=== PATIENT | male | born 2005 | race Caucasian/White ===

== ENCOUNTER 2024-12-20 19:04 | Emergency (ER) | payer OTHER ==
[2024-12-20 19:53] LABS: Influenza A Ag Negative; Influenza B Ag Negative; SARS-CoV-2 Antigen Rapid Res Negative (Negative)
--- NOTE | 2024-12-20 20:39 | RAD REPORT ---
EXAMINATION: TWO VIEW CHEST XR CLINICAL INDICATION: Male, 19 years old. [facility] MAIN COUGH Bed Name: [facility] TECHNIQUE: 2 view radiographs of the chest were performed. COMPARISON: 12/31/2013 FINDINGS: The lungs are well inflated and clear. No pneumothorax or sizable effusion. The heart is normal in si ze. Mediastinal contours are unremarkable. IMPRESSION: No acute or significant abnormalities.
[2024-12-20] MEDS ORDERED: IBUPROFEN 200 MG TAB PO ONE (21:14)
[2024-12-20] MEDS ORDERED: CEFTRIAXONE 1000 MG/VIAL ONE (21:14)
[2024-12-20] MEDS ORDERED: AZITHROMYCIN 250 MG TAB ONE (21:14)
[2024-12-20] MEDS ORDERED: LIDOCAINE 1% MPF 2 ML AMPULE ONE (21:14)
--- NOTE | 2024-12-20 21:18 | EDPHYS ---
Physician Documentation [facility] Name: Padilla Barrett Age: 19 yrs Sex: Male : 2005 Arrival Date: 12/20/2024 Time: 19:04 Bed 10 Private MD: ED Physician Vasiliy Alvarez HPI: 12/20 21:09 This 19 yrs old Male presents to ER via Ambulatory with complaints of Cough, baltazar Congestion. 21:09 The patient or guardian reports airway noise, cough, flu symptoms, low-grade fever, baltazar myalgias. Severity of symptoms: At their worst the symptoms were mild, in the emergency department the symptoms are unchanged. Modifying factors: The symptoms are alleviated by. Associated signs and symptoms: The patient has no apparent associated signs or symptoms. The patient has not experienced similar symptoms in the past. Historical: - Allergies: 19:23 No Known Allergies; jb4 - PMHx: 19:23 None; jb4 - PSHx: 19:23 None; jb4 - Immunization history:: Adult Immunizations up to date. - Infectious Disease History:: Denies. - Social history:: Smoking status: Patient denies any tobacco usage or history of. Patient uses alcohol, occasionally. ROS: 21:15 Constitutional: Negative for fever, chills, and weight loss, Eyes: Negative for injury, baltazar pain, redness, and discharge, ENT: Negative for injury, pain, and discharge, Neck: Negative for injury, pain, and swelling, Cardiovascular: Negative for chest pain, palpitations, and edema, Abdomen/GI: Negative for abdominal pain, nausea, vomiting, diarrhea, and constipation, Back: Negative for injury and pain, : Negative for injury, bleeding, discharge, and swelling, MS/Extremity: Negative for injury and deformity, Skin: Negative for injury, rash, and discoloration, Neuro: Negative for headache, weakness, numbness, tingling, and seizure, Psych: Negative for depression, anxiety, suicide ideation, homicidal ideation, and hallucinations, Allergy/Immunology: Negative for hives, rash, and allergies, Endocrine: Negative for neck swelling, polydipsia, polyuria, polyphagia, and marked weight changes, Hematologic/Lymphatic: Negative for swollen nodes, abnormal bleeding, and unusual bruising, 21:15 Respiratory: Positive for cough, Exam: 21:15 Constitutional: This is a well developed, well nourished patient who is awake, alert, baltazar and in no acute distress. Head/Face: Normocephalic, atraumatic. Eyes: Pupils equal round and reactive to light, extra-ocular motions intact. Lids and lashes normal. Conjunctiva and sclera are non-icteric and not injected. Cornea within normal limits. Periorbital areas with no swelling, redness, or edema. ENT: Nares patent. No nasal discharge, no septal abnormalities noted. Tympanic membranes are normal and external auditory canals are clear. Oropharynx with no redness, swelling, or masses, exudates, or evidence of obstruction, uvula midline. Mucous membranes moist. Neck: Trachea midline, no thyromegaly or masses palpated, and no cervical lymphadenopathy. Supple, full range of motion without nuchal rigidity, or vertebral point tenderness. No Meningismus. Chest/axilla: Normal chest wall appearance and motion. Nontender with no deformity. No lesions are appreciated. Cardiovascular: Regular rate and rhythm with a normal S1 and S2. No gallops, murmurs, or rubs. Normal PMI, no JVD. No pulse deficits. Respiratory: Lungs have equal breath sounds bilaterally, clear to auscultation and percussion. No rales, rhonchi or wheezes noted. No increased work of breathing, no retractions or nasal flaring. Abdomen/GI: Soft, non-tender, with normal bowel sounds. No distension or tympany. No guarding or rebound. No evidence of tenderness throughout. Back: No spinal tenderness. No costovertebral tenderness. Full range of motion. Male : Normal genitalia with no discharge or lesions. Skin: Warm, dry with normal turgor. Normal color with no rashes, no lesions, and no evidence of cellulitis. MS/ Extremity: Pulses equal, no cyanosis. Neurovascular intact. Full, normal range of motion., bilateral aka Neuro: Awake and alert, GCS 15, oriented to person, place, time, and situation. Cranial nerves II-XII grossly intact. Motor strength 5/5 in all extremities. Sensory grossly intact. Cerebellar exam normal. Normal gait. Psych: Awake, alert, with orientation to person, place and time. Behavior, mood, and affect are within normal limits. 21:15 Musculoskeletal/extremity: DVT Exam: No signs of deep vein thrombosis. no pain, no swelling, no tenderness, negative Homans' sign noted on exam, no appreciated bluish discoloration, no erythema, no increased warmth, Vital Signs: 19:20 BP 159 / 111; Pulse 105; Resp 14; Temp 99(TE); Pulse Ox 100% on R/A; Weight 92.99 kg jb4 (R); Height 5 ft. 9 in. (R); Pain 5/10; 21:30 BP 149 / 104; Pulse 96; Resp 16; Pulse Ox 100% ; cp4 19:20 Body Mass Index 30.27 (92.99 kg, 175.26 cm) jb4 19:20 Pain Scale: Adult jb4 MDM: 19:21 Medical Screening Exam initiated baltazar 21:16 Differential diagnosis: viral Infection, bacterial infection, URI, bronchitis, baltazar pneumonia UTI. Differential Diagnosis: Obstructed Airway Bronchitis Influenza Upper Respiratory Infection Sinusitis Pharyngitis Allergic Rhinitis Asthma Exacerbation Viral Syndrome Pneumonia. Data reviewed: vital signs, nurses notes, lab test result(s), radiologic studies, plain films. Consideration of Admission/Observation Patient was admitted/placed on observation. Escalation of care including admission/observation considered. I considered the following discharge prescriptions or medication management in the emergency department Medications were administered in the Emergency Department. See MAR. Historians other than the Patient: pt well informed. Care significantly affected by the following chronic conditions: none. 12/20 19:23 Order name: COVID-19 Ag + Flu A+B Ag baltazar 12/20 19:23 Order name: Chest Pa And Lat (2 Views) XRAY baltazar Administered Medications: 21:19 Drug: Rocephin (cefTRIAXone) IM 1 grams IM once Route: IM; Site: right ventrogluteal; cp4 21:20 Follow up: Response: No adverse reaction cp4 21:19 Drug: AZITHromycin PO 500 mg PO once Route: PO; cp4 21:20 Follow up: Response: No adverse reaction cp4 21:19 Drug: Ibuprofen PO 600 mg PO once Route: PO; cp4 21:20 Follow up: Response: No adverse reaction cp4 Disposition Summary: 12/20/24 21:18 Discharge Ordered Notes: Location: Home baltazar Problem: new baltazar Symptoms: have improved baltazar Condition: Stable baltazar Diagnosis - Acute upper respiratory infection, unspecified baltazar - Cough baltazar - Fever, unspecified baltazar Followup: baltazar - With: Private Physician - When: 2 - 3 days - Reason: Recheck today's complaints, Continuance of care, Re-evaluation by your physician Discharge Instructions: - Discharge Summary Sheet baltazar - Fever, Adult baltazar - Cool Mist Vaporizer baltazar - Cough, Adult, [id number] baltazar - Cough, Adult baltazar - Fever, Adult, [id number] [facility] Forms: - Medication Reconciliation Form baltazar - Antibiotic Education baltazar - Prescription Opioid Use baltazar - Patient Portal Instructions [facility] - Leadership Thank You Letter [facility] Prescriptions: - Tessalon Perles 100 mg Oral capsule - take 2 capsule ORAL route every 8 hours As needed; 30 capsule; Refills: 0, [facility] Product Selection Permitted - Zithromax 500 mg Oral Tablet - take 1 tablet ORAL route once daily for 5 days; 5 tablet; Refills: 0, Product [facility] Selection Permitted Signatures: Dispatcher [employer] Vasiliy Kim MD MD cha Bryson, James RN RN jb4 Suha Hale 4
--- NOTE | 2024-12-20 21:18 | ER ---
Nurse's Notes [facility] Name: Padilla Barrett Age: 19 yrs Sex: Male : 2005 Arrival Date: 12/20/2024 Time: 19:04 Bed 10 Private MD: Diagnosis: Acute upper respiratory infection, unspecified;Cough;Fever, unspecified Presentation: 12/20 19:20 Chief complaint: Patient states: I have been coughing up a lot of mucus and having jb4 blood tinged sputum. I am having headaches and my ankles hurt. The cough started 6 days ago. Coronavirus screen: At this time, the client does not indicate any symptoms associated with coronavirus-19. Ebola Screen: No symptoms or risks identified at this time. Initial Sepsis Screen: Does the patient meet any 2 criteria? No. Patient's initial sepsis screen is negative. Does the patient have a suspected source of infection? No. Patient's initial sepsis screen is negative. Risk Assessment: Do you want to hurt yourself or someone else? Patient reports no desire to harm self or others. Onset of symptoms was December 20, 2024. Transition of care: patient was not received from another setting of care. 19:20 Method Of Arrival: Ambulatory jb4 19:20 Acuity: LEEANN 4 jb4 Triage Assessment: 19:23 General: Appears in no apparent distress. uncomfortable, Behavior is calm, cooperative. jb4 Pain: Complains of pain in OLGA LIDIA ankles, Front of head. Pain does not radiate. Pain currently is 5 out of 10 on a pain scale. Cardiovascular: Patient's skin is warm and dry. Respiratory: Airway is patent Respiratory effort is even, unlabored, Respiratory pattern is regular, symmetrical. Derm: Skin is intact, Skin is pink, warm \T\ dry. Musculoskeletal: Circulation, motion, and sensation intact. Range of motion: intact in all extremities. Historical: - Allergies: 19:23 No Known Allergies; jb4 - PMHx: 19:23 None; jb4 - PSHx: 19:23 None; jb4 - Immunization history:: Adult Immunizations up to date. - Infectious Disease History:: Denies. - Social history:: Smoking status: Patient denies any tobacco usage or history of. Patient uses alcohol, occasionally. Screenin:31 [facility] ED Fall Risk Assessment (Adult) History of falling in the last 3 months, cp4 including since admission No falls in past 3 months (0 pts) Confusion or Disorientation No (0 pts) Intoxicated or Sedated No (0 pts) Impaired Gait No (0 pts) Mobility Assist Device Used No (0 pt) Altered Elimination No (0 pt) Score/Fall Risk Level 0 - 2 = Low Risk Oriented to surroundings, Maintained a safe environment, Assessed \T\ reinforced patient's understanding of fall precautions, Hourly rounding (assess needs \T\ fall precautionary measures) done. Abuse screen: Denies threats or abuse. Denies injuries from another. Nutritional screening: No deficits noted. Tuberculosis screening: No symptoms or risk factors identified. Assessment: 19:31 General: Appears in no apparent distress. uncomfortable, Behavior is calm, cooperative, cp4 appropriate for age. Pain: Denies pain. Neuro: Level of Consciousness is awake, alert, obeys commands, Oriented to person, place, time, situation. Cardiovascular: Patient's skin is warm and dry. Respiratory: Airway is patent Respiratory effort is even, unlabored, Breath sounds are clear bilaterally. GI: No signs and/or symptoms were reported involving the gastrointestinal system. : No signs and/or symptoms were reported regarding the genitourinary system. EENT: No signs and/or symptoms were reported regarding the EENT system. Derm: No signs and/or symptoms reported regarding the dermatologic system. Musculoskeletal: No signs and/or symptoms reported regarding the musculoskeletal system. Vital Signs: 19:20 BP 159 / 111; Pulse 105; Resp 14; Temp 99(TE); Pulse Ox 100% on R/A; Weight 92.99 kg jb4 (R); Height 5 ft. 9 in. (R); Pain 5/10; 21:30 BP 149 / 104; Pulse 96; Resp 16; Pulse Ox 100% ; cp4 19:20 Body Mass Index 30.27 (92.99 kg, 175.26 cm) jb4 19:20 Pain Scale: Adult jb4 ED Course: 19:07 Patient arrived in ED. rg4 19:21 Vasiliy Alavrez MD is Attending Physician. baltazar 19:23 Triage completed. jb4 19:23 Arm band placed on right wrist. jb4 19:31 Suha Hale is Primary Nurse. cp4 19:31 Bed in low position. Call light in reach. Side rails up X 1. cp4 19:31 No provider procedures requiring assistance completed. Patient did not have IV access cp4 during this emergency room visit. 20:07 Chest Pa And Lat (2 Views) XRAY In Process Unspecified. EDMS 21:30 Provided Education on: fever and cough. cp4 Administered Medications: 21:19 Drug: Rocephin (cefTRIAXone) IM 1 grams IM once Route: IM; Site: right ventrogluteal; cp4 21:20 Follow up: Response: No adverse reaction cp4 21:19 Drug: AZITHromycin PO 500 mg PO once Route: PO; cp4 21:20 Follow up: Response: No adverse reaction cp4 21:19 Drug: Ibuprofen PO 600 mg PO once Route: PO; cp4 21:20 Follow up: Response: No adverse reaction cp4 Medication: 19:31 VIS not applicable for this client. cp4 Outcome: 21:18 Discharge ordered by . baltazar 21:30 Discharged to home ambulatory, cp4 21:30 Condition: stable 21:30 Discharge instructions given to patient, family, Instructed on discharge instructions, follow up and referral plans. medication usage, Demonstrated understanding of instructions, follow-up care, medications, Prescriptions given X 2, 21:43 Patient left the ED. cp4 Signatures: Dispatcher [employer] EDMS Vasiliy Alvarez MD MD cha Garcia, Rubi rg4 Bj Nayak, RN RN Suha Gardner cp4
[2024-12-20 21:48] VITALS: TEMP 99; O2SAT 100
[2024-12-20 21:50] VITALS: BP 149/104
== END 2024-12-20 21:43 | disposition home or self-care (01) ==
LOC: ER 19:04
DX: J06.9 Acute upper respiratory infection, unspecified (principal); R50.9 Fever, unspecified; Z11.52 Encounter for screening for COVID-19
CPT/HCPCS: 36415; 71046; 96372; 99284; 87428; J0696